=== PATIENT | male | born 1965 | race Caucasian/White ===

== ENCOUNTER → 2020-08-24 | Day surgery (SDC) | payer MEDICAID | END | disposition home or self-care (01) | LOC: MSO 08:44 | DX: E11.36 Type 2 diabetes mellitus with diabetic cataract (principal); H25.13 Age-related nuclear cataract, bilateral; I10 Essential (primary) hypertension; I95.9 Hypotension, unspecified; F17.210 Nicotine dependence, cigarettes, uncomplicated; Z79.4 Long term (current) use of insulin; Z79.899 Other long term (current) drug therapy; Z79.82 Long term (current) use of aspirin; Z88.7 Allergy status to serum and vaccine; Z88.0 Allergy status to penicillin | CPT/HCPCS: 00142; J0171; J2250; V2632 ==

== ENCOUNTER → 2020-09-21 | Day surgery (SDC) | payer MEDICAID | END | disposition home or self-care (01) | LOC: MSO 07:19 | DX: E11.36 Type 2 diabetes mellitus with diabetic cataract (principal); H26.8 Other specified cataract; I10 Essential (primary) hypertension; E66.9 Obesity, unspecified; F17.210 Nicotine dependence, cigarettes, uncomplicated; Z79.4 Long term (current) use of insulin; Z79.82 Long term (current) use of aspirin; Z79.899 Other long term (current) drug therapy; Z88.0 Allergy status to penicillin; Z88.7 Allergy status to serum and vaccine | CPT/HCPCS: 00142; J0171; J2250; J3010; V2632 ==